=== PATIENT | female | born 1985 | race Caucasian/White ===

== ENCOUNTER 2017-12-03 18:12 | Observation (INO) ==
[2017-12-03 19:20] LABS: Amphetamine Screen,Urine Negative ng/mL (Cutoff=1000); Barbiturate Screen,Urine Negative ng/mL (Cutoff=200); Benzodiazepines Screen,Urine Negative ng/mL (Cutoff=200); Cannabinoid Screen,Urine Negative ng/mL (Cutoff = 50); Cocaine Screen,Urine Negative ng/mL (Cutoff= 300); Opiate Screen,Urine Negative ng/mL (Cutoff=300); Phencyclidine Screen,Urine Negative ng/mL (Cutoff=25)
[2017-12-03 19:42] LABS: Bilirubin,Urine Negative (Negative); Blood,Urine Negative (Negative); Clarity,Urine Cloudy (Clear); Color,Urine Yellow (Yellow); Glucose,Urine (UA) Normal (Normal); Ketones,Urine Negative (Negative); Leukocyte Esterase,Urine Small (Negative); Nitrite,Urine Negative (Negative); PH,Urine 6.5 pH Units (5.0-8.0); Protein,Urine Negative (Neg-Trace); Specific Gravity,Urine 1.018 (1.010-1.025); Urobilinogen,Urine Normal (Normal)
[2017-12-03 19:44] LABS: Bacteria,Urine None Seen per hpf (None-Few); Hyaline Casts,Urine None Seen per lpf (None-Few); RBC,Urine 0-3 per hpf (0-3); Squamous Epithelial Cell,Urine Many per lpf (None-Few)
--- NOTE | 2017-12-03 20:06 | Discharge Summary ---
Date of Encounter: 12/03/17 Time of Encounter: 20:05 - Discharge Diagnosis (1) 34 weeks gestation of Priority: Secondary Status: Acute (2) Pain of round ligament during Priority: Primary Status: Acute Comments: This is a 32 yo who presents with c/o pain affecting bilateral lower quadrants and lower back. She also reports she has had mucoid discharge. She denies contractions, LOF, VB, STARKEY, vision changes, RUQ pain. Endorses good FM. She states her primary OB reported that her placenta was close to her cervix at 20 weeks but has not had follow up US since then. NST reactive and FHR Category I Affirm sent - results negative Discharge home today Follow up in office with Dr. Marin - Discharge Medications Home Medications: Vit/Iron Fumarate/FA [ Tablet] 1 tab PO DAILY 12/03/17 [History ] Allergies/Adverse Reactions: 3 Allergy/AdvReac Type Severity Reaction Status Date / Time No Known Allergies Allergy Verified 12/03/17 18:17 Data Procedures and tests throughout hospitalization: Laboratory Tests 12/03/17 12/03/17 18:40 18:40 Urine Color Yellow Urine Clarity Cloudy A Urine pH 6.5 Ur Specific Terrell 1.018 Urine Protein Negative Urine Glucose (UA) Normal Urine Ketones Negative Urine Blood Negative Urine Nitrite Negative Urine Bilirubin Negative Urine Urobilinogen Normal Ur Leukocyte Esterase Small H Urine Microscopic RBC 0-3 Urine Microscopic WBC 3-5 H Ur Squamous Epith Cells Many H Urine Bacteria None Seen Hyaline Casts None Seen Ur Culture Indicated? NO. Urine Opiates Screen Negative Ur Barbiturates Screen Negative Ur Phencyclidine Scrn Negative Ur Amphetamines Screen Negative U Benzodiazepines Scrn Negative Urine Cocaine Screen Negative U Marijuana (THC) Screen Negative Labs on day of discharge: Labs from last 24 hours 12/03/17 12/03/17 18:40 18:40 Urine Color Yellow Urine Clarity Cloudy A Urine pH 6.5 Ur Specific Terrell 1.018 Urine Protein Negative Urine Glucose (UA) Normal Urine Ketones Negative Urine Blood Negative Urine Nitrite Negative Urine Bilirubin Negative Urine Urobilinogen Normal Ur Leukocyte Esterase Small H Urine Microscopic RBC 0-3 Urine Microscopic WBC 3-5 H Ur Squamous Epith Cells Many H Urine Bacteria None Seen Hyaline Casts None Seen Ur Culture Indicated? NO. Urine Opiates Screen Negative Ur Barbiturates Screen Negative Ur Phencyclidine Scrn Negative Ur Amphetamines Screen Negative U Benzodiazepines Scrn Negative Urine Cocaine Screen Negative U Marijuana (THC) Screen Negative Date of admission: 12/03/17 18:12 Discharging clinician: Radha Orr Anticipated date of discharge: 12/03/17 - Patient Status Disposition: Home, Self-Care Condition: Good Functional capacity at discharge: independent ambulation Overall status at discharge: patient is progressing back to baseline - Discharge Instructions Follow Up With: Oren Martinez MD [Non-Partnered Physician] - - Diet and Activity Activity: increase activity as tolerated Diet: regular diet Hospital Course GEOLOGICAL SPECIALIST Time Attestation: Total time spent providing and/or coordinating discharge services: Exam - Constitutional General appearance IM: A&O X 3, pleasant, no acute distress - Respiratory Respiratory exam: Present: CTAB - Cardiovascular Cardiovascular exam IM: Present: RRR, +S1, +S2 - GI/Abdominal GI/Abdominal exam IM: no peritoneal signs - Rectal Rectal exam: deferred - Additional comments: Cervix visually closed on speculum exam - Extremities Exam Extremities exam IM: Present: radial pulses palpable and symmetrical - Neurological Exam Neurological exam: alert, oriented X3 - Psychiatric Additional comments: Pt reports she is feeling well - VTE Reasons for not Prescribing Prophylaxis: Treatment not Indicated - Low risk for VTE
[2017-12-03 21:12] LABS: Candida DNA Not Detected (Not Detect); Gardnerella DNA Not Detected (Not Detect); Trichomonas DNA Not Detected (Not Detect)
== END 2017-12-03 21:35 | disposition home or self-care (01) ==
LOC: 1NENULAB
PROVIDERS: ADMIT Obstetrics & Gynecology; ATTEND Obstetrics & Gynecology

== ENCOUNTER 2018-01-02 08:40 | Observation (INO) ==
--- NOTE | 2018-01-02 09:51 | OB/GYN Progress Note ---
Date of Encounter: 01/02/18 Time of Encounter: 09:47 - Assessment and Plan (1) 37 weeks gestation of Current Visit: Yes Status: Acute (2) Rectal pressure Current Visit: Yes Status: Acute Observe for contractions Follow up in office as scheduled Return for labor precautions given Increase hydration Discharge home Subjective - Subjective Interval history: Ms. Singh is a 32 yo at 37 weeks and 3 days with an EDB of 01/20/18 who presents with c/o rectal pressure and decreased movement since the middle of the night last night. She denies feeling contractions but states her concern because she has a history of deliveries. Endorses some FM but not as vigorous as usual. Denies vaginal bleeding, contractions, RUQ pain, STARKEY, dizziness. Antepartum ROS: new complaints Objective - Vital Signs Vital Signs: Intake and Output 01/01/18 01/02/18 01/02/18 23:59 07:59 15:59 Other: Weight 73 kg Patient Weight 01/02/18 23:59 Weight 73 kg - Exam FHR: auscultation normal, category 1 Auscultation: bilateral: normal Abdomen: Present: normal appearance, soft, gravid Uterus: Present: normal Cervical dilation: 2 Cervix effacement: 50 station: -2 - Labs Labs: Urine negative
[2018-01-02 10:19] LABS: Bilirubin,Urine Negative (Negative); Blood,Urine Negative (Negative); Clarity,Urine Cloudy (Clear); Color,Urine Yellow (Yellow); Glucose,Urine (UA) 250 mg/dL (Normal); Ketones,Urine Negative (Negative); Leukocyte Esterase,Urine Trace (Negative); Nitrite,Urine Negative (Negative); PH,Urine 6.5 pH Units (5.0-8.0); Protein,Urine Negative (Neg-Trace); Specific Gravity,Urine 1.025 (1.010-1.025); Urobilinogen,Urine Normal (Normal)
[2018-01-02 10:21] LABS: Bacteria,Urine None Seen per hpf (None-Few); Hyaline Casts,Urine None Seen per lpf (None-Few); RBC,Urine 0-3 per hpf (0-3); Squamous Epithelial Cell,Urine Many per lpf (None-Few)
== END 2018-01-02 11:22 | disposition home or self-care (01) ==
LOC: 1NENULAB
PROVIDERS: ADMIT Obstetrics & Gynecology; ATTEND Obstetrics & Gynecology

== ENCOUNTER 2018-01-11 10:20 | Observation (INO) ==
[2018-01-11 11:33] LABS: Basophils # 0.1 K/mcL (0.0-0.2); Basophils % 0.6 %; Eosinophils # 0.2 K/mcL (0.0-0.6); Eosinophils % 1.7 %; Hematocrit 33.5 % (35.3-44.9); Immature Granulocytes % 0.6 % (0-4); Lymphocytes # 1.8 K/mcL (0.6-4.6); Lymphocytes % 16.6 %; Mean Corpuscular HGB Conc 32.8 g/dL (31.6-35.5); Mean Corpuscular Volume 82.3 fL (83.0-100.0); Monocytes # 1.2 K/mcL (0.0-1.3); Monocytes % 10.8 %; Neutrophils # 7.5 K/mcL (1.6-8.9); Platelet Count 432 K/mcL (140-400); Red Blood Count 4.07 M/mcL (3.82-4.97); Red Cell Distribution Width 12.7 % (11.5-14.5); Segmented Neutrophils % 69.7 %
[2018-01-11 11:36] LABS: Amphetamine Screen,Urine Negative ng/mL (Cutoff=1000); Barbiturate Screen,Urine Negative ng/mL (Cutoff=200); Benzodiazepines Screen,Urine Negative ng/mL (Cutoff=200); Cannabinoid Screen,Urine Negative ng/mL (Cutoff = 50); Cocaine Screen,Urine Negative ng/mL (Cutoff= 300); Opiate Screen,Urine Negative ng/mL (Cutoff=300); Phencyclidine Screen,Urine Negative ng/mL (Cutoff=25)
[2018-01-11 11:51] LABS: Protein/Creatinine Ratio,Urine 0.13 mg/mg (0.00-0.20)
[2018-01-11 12:00] LABS: Alanine Aminotransferase 9 Units/L (7-52); Aspartate Amino Transferase 14 Units/L (13-39); BUN/Creatinine Ratio 19 (6-26); Blood Urea Nitrogen 10 mg/dL (6-20); Lactate Dehydrogenase 133 Units/L (140-271); Uric Acid 4.5 mg/dL (2.3-7.6); eGFR For African Americans > 60 (> 60); eGFR For Non-African Americans > 60 (> 60)
--- NOTE | 2018-01-11 12:33 | OB/GYN Progress Note ---
Date of Encounter: 01/11/18 Time of Encounter: 12:31 - Assessment and Plan (1) 38 weeks gestation of Current Visit: Yes Status: Acute (2) headache in third trimester Current Visit: Yes Status: Acute Take tylenol prn PIH labs - all WNL Labor precautions given Discharge home Subjective - Subjective Principal diagnosis: Headache Interval history: Ms. Singh is a 32 yo at 38 weeks + 5 days who presents from the office with c/o headache off and on over the past 3 days. Today she presents with blurry vision. She states she has taken tylenol for STARKEY which helped but she only took one dose because she doesn't like to take pills. Endorses good FM and denies ctx , vaginal bleeding, RUQ pain. Objective - Vital Signs Vital Signs: Intake and Output 01/10/18 01/11/18 01/11/18 23:59 07:59 15:59 Other: Weight 73.936 kg Patient Weight 01/11/18 23:59 Weight 73.936 kg - Exam FHR: auscultation normal, category 1 FHR comments: Baseline 145 Moderate variability Accelerations present No decelerations Rare contraction on toco Auscultation: bilateral: normal Abdomen: Present: normal appearance, soft, gravid Uterus: Present: normal, firm - Labs Labs: Abnormal lab results Hgb 11.0 g/dL (11.5-15.4) L 01/11/18 11:13 Hct 33.5 % (35.3-44.9) L 01/11/18 11:13 MCV 82.3 fL (83.0-100.0) L 01/11/18 11:13 MCH 27.0 pg (28.0-33.3) L 01/11/18 11:13 Plt Count 432 K/mcL (140-400) H 01/11/18 11:13 Creatinine 0.52 mg/dL (0.60-1.20) L 01/11/18 11:13 Lactate Dehydrogenase 133 Units/L (140-271) L 01/11/18 11:13 Urine Total Protein 19 mg/dL (1-14) H 01/11/18 11:05
== END 2018-01-11 12:47 | disposition home or self-care (01) ==
LOC: 1NENULAB
PROVIDERS: ADMIT Advanced Practice Midwife; ATTEND Student in an Organized Health Care Education/Training Program

== ENCOUNTER 2018-01-17 06:21 | Inpatient (IN) ==
[2018-01-16 23:52] LABS: Basophils % 0.3 %; Eosinophils # 0.2 K/mcL (0.0-0.6); Eosinophils % 1.4 %; Hematocrit 33.5 % (35.3-44.9); Hemoglobin 11.2 g/dL (11.5-15.4); Immature Granulocytes % 0.7 % (0-4); Lymphocytes # 2.4 K/mcL (0.6-4.6); Lymphocytes % 19.3 %; Mean Corpuscular HGB Conc 33.4 g/dL (31.6-35.5); Mean Corpuscular Hemoglobin 27.4 pg (28.0-33.3); Mean Corpuscular Volume 81.9 fL (83.0-100.0); Monocytes # 1.2 K/mcL (0.0-1.3); Monocytes % 9.5 %; Neutrophils # 8.6 K/mcL (1.6-8.9); Platelet Count 436 K/mcL (140-400); Red Blood Count 4.09 M/mcL (3.82-4.97); Red Cell Distribution Width 12.9 % (11.5-14.5); Segmented Neutrophils % 68.8 %
--- NOTE | 2018-01-17 00:05 | OB/GYN History & Physical ---
Date of Encounter: 01/17/18 Time of Encounter: 00:00 Assessment and Plan (1) 39 weeks gestation of Current visit: Yes Status: Acute FHT reassuring at this time. (2) SROM (spontaneous rupture of membranes) Current visit: Yes Status: Acute Nitrazine positive. Admit for labor. GBS negative. Will augment with pitocin if needed. Allow intermittent monitoring and ambulation until pitocin. Anticipate . History of Present Illness Chief complaint: SROM HPI: Ms. Singh is a 33 year old female presenting at 39w3d with c/o a large gush of clear fluid at 2115 following by constant leaking. She reports rare contractions. Good FM. No other complaints. This was complicated by low lying placenta that resolved. She has a history of one molar and 1 missed . Denies headaches, vision changes, chest pain, shortness of breath, f/c/n/v. normal AFP Blood type: B- GBS: negative glucose: 123 Hep B/C: negative HIV: negative Rubella: immune Varicella: immune Past Med Surg Social Fam HX - Past Medical History Medical history: no medical history Psychiatric history: no psych history - Past Surgical History Surgical History: other - Social History Smoking Status: Never smoker Smokeless Tobacco Status: No Alcohol use: none Drug use: none - Family History Mother Adopted: No Living Status: Hx Family Cardiac Disorders: Yes (hypertension) Hx Family Respiratory Disorders: No Hx Family Cancer: No Hx Family GI Disorders: No Hx Family Genitourinary Disorders: No Hx Family Endocrine Disorder: No Hx Family Musculoskeletal Disorders: No Hx Family Neuromuscular Disorders: No Hx Family Neurologic Disorders: No Hx Family HEENT Disorders: No Hx Family Autoimmune Disorders: No Hx Family Reproductive Disorders: No Hx Family Psychosocial Disorders: No Hx Family Medical Disorders: No Obstetrical History - Pregnancies : 6 Term: 1 : 2 Ab's: 2 Livin Medications and Allergies Vit/Iron Fumarate/FA [ Tablet] 1 tab PO DAILY 12/03/17 [History ] 3 Allergy/AdvReac Type Severity Reaction Status Date / Time No Known Allergies Allergy Verified 01/11/18 11:03 Review of System OB All systems PM: reviewed and no additional remarkable complaints except as stated - Constitutional Constitutional ROS IM: as per HPI - Cardiovascular Cardiovascular: as per HPI - Respiratory Respiratory: as per HPI - Gastrointestinal Gastrointestinal: as per HPI Exam - Constitutional Constitutional: well developed, well nourished, no acute distress, average body habitus - HEENT HEENT: Mucus Membranes Moist - Lungs Respiratory exam: CTAB - Cardiovascular Cardiovascular exam: RRR, +S1, +S2 - Abdomen Abdomen: Present: gravid, non tender - Extremities Extremities exam: normal inspection - Vagina Vagina: Present: normal moisture - Cervix Dilation: 3 Effacement: 70 Station: -2 - Anus/Rectum Anus/Rectum: Present: normal perianal skin Results Result Diagrams: 01/16/18 23:40 Abnormal lab results WBC 12.4 K/mcL (4.3-11.1) H 01/16/18 23:40 Hgb 11.2 g/dL (11.5-15.4) L 01/16/18 23:40 Hct 33.5 % (35.3-44.9) L 01/16/18 23:40 MCV 81.9 fL (83.0-100.0) L 01/16/18 23:40 MCH 27.4 pg (28.0-33.3) L 01/16/18 23:40 Plt Count 436 K/mcL (140-400) H 01/16/18 23:40 All other labs normal. - VTE Reasons for not Prescribing Prophylaxis: Treatment not Indicated - Low risk for VTE
--- NOTE | 2018-01-17 03:33 | Anesthesia Evaluation PreOp ---
Date of Encounter: 01/17/18 Time of Encounter: 02:59 - Past History Planned Operation: vaginal del, Cardiac History: Denies any Significant Hx Pulmonary History: Denies Any Significant HX BRAND REPRESENTATIVE History: Denies Any Significant HX Other Medical History: Denies Any Significant HX Anesthesia History: No Prior Anesthetic Complications, Past Anesthesia Alcohol Use: none Drug use: none Medications and Allergies Vit/Iron Fumarate/FA [ Tablet] 1 tab PO DAILY 12/03/17 [History ] 3 Allergy/AdvReac Type Severity Reaction Status Date / Time No Known Allergies Allergy Verified 01/11/18 11:03 Anesthesia Results - Labs 01/16/18 23:40 Anesthesia Exam - HEENT Pupil (Motor): Pupils equal Mallampati: II Teeth: Normal Oral Opening: Greater than 3 - BRAND REPRESENTATIVE LOC: Oriented BRAND REPRESENTATIVE Motor: Normal RUE, Normal LUE, Normal RLE, Normal LLE, Normal Face BRAND REPRESENTATIVE Sensory: Normal: RUE, LUE, RLE, LLE, Face - Cardiac Rhythm: Regular Murmur: None - Pulmonary Breath Sounds: bilateral Clear Respiratory Effort: Symmetrical Anesthesia Assess/Plan ASA Score: 2 Modified Petey Scale for Level of Consciousness: Cooperative, oriented, and tranquil Anesthetic Plan: General, Regional Monitoring Plan: Standard Monitors Recovery Plan: PACU
--- NOTE | 2018-01-17 03:35 | Anesthesia Procedures ---
Date of Encounter: 01/17/18 Time of Encounter: 02:59 Procedures: Anesthesia - Epidural/Spinal Patient ID/Chart reviewed: Yes Patient examined: Yes OB Eval: Gestational age: term OB Eval: : 4 OB Eval: Hx Para: 3 OB Eval: Contractions: Non-stressed pattern Consent Obtained: Yes Supplemental Oxygen: None/Room Air Site Prep: Aseptic Technique, Sterile prep and drape, 0.5% Chlorhexidine/Alcohol Patient position: upright Local Anesthetic: Lidocaine 1% Amount of Local Anesthetic used: 2 Touhy Needle Gauge: 18 Touhy Needle Depth (cm): 5 Catheter Depth at Skin (cm): 9 Test Dose (1.5% Lido + Epi): Volume given (mls): 3 Test Dose Result: Negative Loading Dose: Other: 10ml from solution Loading Dose Administered: Thru Catheter Infusion Med: 0.125% Bupivacaine w/ 2 mcg/ml Fentanyl Infusion Rate (mls/hr): [address]: Tegaderm, Tape Interspace Used: L3-L4 Loss of Resistance (MEGHAN): Yes (saline) Blood: No CSF: No Paresthesia: No Procedure: vss though out procedure, FHR stable per RN's
[~2018-01-17 06:21] MED LIST: *HR* Nalbuphine 10 MG/ML AMPUL IVP PRN; Epidural Premix (fent/bupiv) 110 ML EP ONE; Epidural Premix (fent/bupiv) 110 ML EP SCH; Famotidine 20 MG/2 ML VIAL IVP PRN; Lidocaine 1% 20 ML MDV INFILT PRN; Metoclopramide 10 MG/2 ML VIAL IVP PRN; Naloxone 0.4 MG/ML INJ IVP PRN; Ondansetron 4 MG/2 ML VIAL IVP PRN; Oxytocin 20 units/ LR 1000 mL 20 UNIT/1,000 ML BAG IVC ONE
[2018-01-17] MEDS ORDERED: Oxytocin 20 units/ LR 1000 mL 20 UNIT/1,000 ML BAG IVC SCH ×2 (07:00→12:45)
--- NOTE | 2018-01-17 07:00 | OB Labor Progress Note ---
Date of Encounter: 01/17/18 Time of Encounter: 06:57 Labor Progress Note - Subjective Subjective: Pt comfortable with epidural. - Cervix Cervix: 5cm at 0500 - Heart Tones Heart Tones: Occassional decelerations earlier, currently category I - [place]: Q3 - Plan Plan: Begin Pitocin augmentation. Reposition frequently using peanut ball. Anticipate .
[2018-01-17] MEDS ORDERED: *HR* FentaNYL (PF) 100 MCG/2 ML VIAL ONE ×2 (07:54→17:10)
--- NOTE | 2018-01-17 08:07 | Anesthesia Progress Note ---
Date of Encounter: 01/17/18 Time of Encounter: 08:06 Anesthesia Note - Note Note: 01/17/18 08:06 called for increased pain during contractions. bolus given of 8ml of 0.2% ropivacaine with 100mcg fentanyl. vss. fhr stable.
[2018-01-17] MEDS: Ringers Solution, Lactated 1,000 ML IVC SCH ×2 (09:19→13:23)
[2018-01-17] MEDS ORDERED: Epidural Premix (fent/bupiv) 110 ML EP ONE ×3 (09:40→21:14)
--- NOTE | 2018-01-17 11:29 | OB Labor Progress Note ---
Date of Encounter: 01/17/18 Time of Encounter: 11:26 Labor Progress Note - Subjective Subjective: Patient breathing through contractions. States she can feel contractions in her abdomen and back. - Vital Signs Vital Signs: VSS - Cervix Cervix: 3-7/90/-1 anterior small amount of caput noted to vertex - Heart Tones Heart Tones: Category I tracing currently. Baseline 135 - [place]: COntractions every 3-4 minutes - Interventions Interventions: IUPC placed without difficulty; fetus and patient tolerated well. - Plan Plan: Continue routine labor management GBS negative Epidural in place, providing moderate relief Consider pitocin if needed Frequent position changes Anticipate vaginal delivery POC per consult with Dr Oliver
[2018-01-17] MEDS ORDERED: *HR* Ropivacaine/PF 0.2% 20 ML VIAL ONE (17:10)
--- NOTE | 2018-01-17 17:33 | Anesthesia Progress Note ---
Date of Encounter: 01/17/18 Time of Encounter: 17:32 Anesthesia Note - Note Note: 01/17/18 17:32 called for increased pain during contractions. bolus given of 0.2% ropivacaine with 100mcg fentanyl. vss. fhr stable. increased rate to 16ml/hr.
--- NOTE | 2018-01-18 02:23 | OB/GYN Procedure Note ---
Delivery - Delivery Date: 01/18/18 Provider: Radha Miranda Intrapartum events: none Delivery induction: none Delivery augmentation: pitocin Delivery monitor: external FHT, external uterine, internal uterine Anesthesia: epidural Estimated Blood Loss: 350 - Infant (s) Infant A Delivery Date: 01/18/18 Infant Delivery Time: 02:02 Presentation: vertex Position: LIAM Route of delivery: Gender: Male Viability: Viable Pounds: 7 Ounces: 0 Weight Gram: 3180 kg at 1 minute: 8 at 5 mins: 9 Shoulder Dystocia: not encountered Specimens collected: cord blood Placenta: spontaneous Cord: nuchal cord, 3 umbilical vessels, delivered through nuchal - Repair Episiotomy: none Laceration Description: None - Complications Delivery complications: meconium Delivery comments: Patient progressed to complete and began coached pushing. of viable, vigorous male in the LIAM position. Loose nuchal encountered, delivered through. Meconium stained fluid noted upon delivery of the body. No shoulder dystocia encountered. placed on maternal abdomen, warmed, dried, and stimulated. Apgars 8 and 9 at 1 and 5 minutes of age respectively. Cord double clamped and cut by FOB after pulsations ceased. Placenta delivered spontaneously, appears grossly intact and 3 vessel cord. Perineum intact upon inspection. Fundus firm and at u/3 after delivery. EBL 350mL. Infant and mother stable in recovery in skin to skin. Dr Oliver notified of delivery. - Disposition Mom disposition: stable in LDR [place] disposition: stable in LDR
[2018-01-18] MEDS ORDERED: Measles/Mumps/Rubella Vacc 0.5 ML VIAL SQ PRN (02:51)
[2018-01-18] MEDS ORDERED: Oxytocin 20 units/ LR 1000 mL 20 UNIT/1,000 ML BAG IVC ONE (02:51)
[2018-01-18] MEDS ORDERED: Rho Immune Globulin 1,500 UNIT SYRINGE IM PRN (02:51)
[2018-01-18] MEDS ORDERED: Acetaminophen 325 MG TABLET PO PRN (02:51)
[2018-01-18] MEDS ORDERED: Ondansetron 4 MG/2 ML VIAL IVP PRN (02:51)
[2018-01-18] MEDS ORDERED: Sennosides 8.6 MG TABLET PO PRN (02:51)
[2018-01-18] MEDS ORDERED: Oxytocin 20 units/ LR 1000 mL 20 UNIT/1,000 ML BAG IVC SCH (02:51)
[2018-01-18 04:46] LABS: Basophils % 0.2 %; Eosinophils # 0.1 K/mcL (0.0-0.6); Eosinophils % 0.4 %; Hematocrit 27.8 % (35.3-44.9); Immature Granulocytes % 0.7 % (0-4); Lymphocytes # 1.4 K/mcL (0.6-4.6); Lymphocytes % 6.1 %; Mean Corpuscular HGB Conc 33.5 g/dL (31.6-35.5); Mean Corpuscular Hemoglobin 27.4 pg (28.0-33.3); Mean Corpuscular Volume 81.8 fL (83.0-100.0); Monocytes # 2.1 K/mcL (0.0-1.3); Monocytes % 9.3 %; Neutrophils # 18.5 K/mcL (1.6-8.9); Platelet Count 335 K/mcL (140-400); Red Cell Distribution Width 13.1 % (11.5-14.5); Segmented Neutrophils % 83.3 %
[2018-01-18 04:47] LABS: Hemoglobin 9.3 g/dL (11.5-15.4)
[2018-01-18] MEDS: Prenatal Vit/FA 1 EACH TABLET PO SCH (09:48)
[2018-01-18] MEDS: Ibuprofen 600 MG TABLET PO PRN ×3 (09:50→22:57)
[2018-01-19 08:12] VITALS: BP 102/65
--- NOTE | 2018-01-19 09:10 | Discharge Summary ---
Date of Encounter: 01/19/18 Time of Encounter: 09:02 - Discharge Diagnosis (1) Vaginal delivery Priority: Primary Status: Acute Comments: S/P Vaginal delivery day 1 Lochia is well light Pain is well controlled VSS Tolerating regular diet Discharge home today (2) Breast feeding status of mother Priority: Secondary Status: Acute - Discharge Medications Prescriptions: Ibuprofen [Motrin] 600 mg PO Q6HR PRN #30 tablet PRN Reason: Mild To Moderate Pain Breast Pump [BREAST PUMP] 1 each .ROUTE AD #1 each Docusate [Colace] 100 mg PO BID PRN #20 capsule PRN Reason: Constipation Ferrous Sulfate 325 mg PO DAILY #60 tablet Home Medications: Vit/Iron Fumarate/FA [ Tablet] 1 tab PO DAILY 12/03/17 [History ] Breast Pump [BREAST PUMP] 1 each .ROUTE AD #1 each 01/18/18 [Rx] Docusate [Colace] 100 mg PO BID PRN #20 capsule 01/19/18 [Rx] Ferrous Sulfate 325 mg PO DAILY #60 tablet 01/19/18 [Rx] Ibuprofen [Motrin] 600 mg PO Q6HR PRN #30 tablet 01/19/18 [Rx] Mupirocin [Bactroban Oint] 1 appl TP BID tube 01/19/18 [Rx] Allergies/Adverse Reactions: 3 Allergy/AdvReac Type Severity Reaction Status Date / Time No Known Allergies Allergy Verified 01/11/18 11:03 Data Procedures and tests throughout hospitalization: Laboratory Tests 01/16/18 01/18/18 01/18/18 23:40 02:31 04:09 WBC 12.4 H 22.2 H D RBC 4.09 3.40 L Hgb 11.2 L 9.3 L D Hct 33.5 L 27.8 L MCV 81.9 L 81.8 L MCH 27.4 L 27.4 L MCHC 33.4 33.5 RDW 12.9 13.1 Plt Count 436 H 335 MPV 10.0 10.0 Immature Gran % 0.7 0.7 Seg Neutrophils % 68.8 83.3 Lymphocytes % 19.3 6.1 Monocytes % 9.5 9.3 Eosinophils % 1.4 0.4 Basophils % 0.3 0.2 Neutrophils # 8.6 18.5 H Lymphocytes # 2.4 1.4 Monocytes # 1.2 2.1 H Eosinophils # 0.2 0.1 Basophils # 0.0 0.0 Baby's Blood Type O RH NEGATIVE Mother's Blood Type B RH NEGATIVE [place]og[place] Indicated NO Labs on day of discharge: Labs from last 24 hours 01/18/18 02:31 Baby's Blood Type O RH NEGATIVE Mother's Blood Type B RH NEGATIVE Rhogam Indicated NO Date of admission: 01/17/18 06:21 Primary care physician: PCP NONE Consults: 01/18/18 02:51 Consult to [facility] [CONS] Routine Comment: Vaginal delivery, consult needed Discharging clinician: Radha Miranda Anticipated date of discharge: 01/19/18 - Patient Status Disposition: Home, Self-Care Condition: Good Functional capacity at discharge: independent ambulation Overall status at discharge: patient is progressing back to baseline - Discharge Instructions Follow Up With: NONE,PCP [Primary Care Provider] - Radha Miranda CNM [Advanced Practice Nurse] - - Diet and Activity Activity: increase activity as tolerated Diet: regular diet Hospital Course Reason for admission: active labor, IUP at term Delivery: Episiotomy: none Laceration: none Other procedures: none complications: none Discharge diagnosis: IUP at term delivered [place] baby: male Time Attestation: Total time spent providing and/or coordinating discharge services: Time Spent: Less than 30 minutes Exam - Constitutional Vitals: Temp Pulse Resp BP Pulse Ox 97.7 F 78 14 102/65 97 01/19/18 08:11 01/19/18 08:11 01/19/18 08:11 01/19/18 08:11 01/19/18 08:11 General appearance IM: cooperative, A&O X 3, pleasant - Respiratory Respiratory exam: Present: CTAB - Cardiovascular Cardiovascular exam IM: Present: RRR, +S1, +S2 - GI/Abdominal GI/Abdominal exam IM: normal bowel sounds, soft - Rectal Rectal exam: deferred - Uterine Tone: Firm Uterus Position: 1 Finger Below Umbilicus, Midline - Extremities Exam Extremities exam IM: Present: normal capillary refill, normal inspection - Neurological Exam Neurological exam: alert, oriented X3
[2018-01-19] MEDS: Prenatal Vit/FA 1 EACH TABLET PO SCH (09:22)
== END 2018-01-19 15:30 | disposition home or self-care (01) | DRG 560 ==
LOC: 1NENULAB → 1NENUOBS 01-18 05:11
PROVIDERS: ADMIT Registered Nurse; ATTEND Registered Nurse